=== PATIENT | male | born 1960 | race Caucasian/White ===

== ENCOUNTER → 2019-02-25 08:36 | Outpatient (CLI) | payer OTHER, SELFPAY ==
[2019-02-25 09:42] LABS: Add Manual Diff / Slide Review NO; Basophils Absolute Auto 0 /uL (0-100); Basophils Percent Auto 0.3 % (0-2); Eosinophils Absolute Auto 100 /uL (0-450); Eosinophils Percent Auto 2.6 % (2-4); Hematocrit 45.4 % (41-53); Hemoglobin 15.5 g/dL (13.5-17.5); Lymphocytes Absolute Auto 500 /uL (1100-4500); Mean Corpuscular HGB Conc 34.2 % (30-36); Mean Corpuscular Hemoglobin 32.1 PG (26-34); Mean Corpuscular Volume 93.8 fL (80-100); Monocytes Absolute Auto 400 /uL (0-900); Monocytes Percent Auto 8.5 % (3-14); Neutrophils Absolute Auto 3300 /uL (1500-7000); Neutrophils Percent Auto 76.6 % (50-75); Platelet Count 140 X10^3/uL (150-400); Red Blood Cell Count 4.84 X10^6/uL (4.5-5.9); Red Cell Distribution Width 13.4 % (11.6-14.8); White Blood Cell Count 4.3 X10^3/uL (4.5-11.0)
[2019-02-25 09:49] LABS: Alanine Aminotransferase 27 IU/L (21-72); Albumin 4.4 g/dL (3.5-5.0); Albumin Globulin Ratio 1.8 (1.0-2.8); Alkaline Phosphatase 90 U/L (38-126); Aspartate Aminotransferase 28 IU/L (17-59); BUN Creatinine Ratio 21.1 (6-22); Bilirubin Total 0.6 mg/dL (0.2-1.3); Blood Urea Nitrogen 19 mg/dL (9-20); Calcium 9.1 mg/dL (8.4-10.2); Carbon Dioxide 27 mmol/L (22-32); Chloride 105 mmol/L (98-107); Estimated Glomerular Filt Rate > 60.0 mL/min (>60); Globulin 2.4 g/dL (1.7-4.1); Glucose 114 mg/dL (70-100); HEMOLYSIS < 15 (0-50); Potassium 4.3 mmol/L (3.4-5.1); Sodium 140 mmol/L (137-145); Total Protein 6.8 g/dL (6.3-8.2)
== END ==
PROVIDERS: Visit Provider Dermatology
DX: Z51.81 Encounter for therapeutic drug level monitoring (principal)
CPT/HCPCS: 36415; 80053; 85025

== ENCOUNTER → 2019-03-26 14:12 | Outpatient (CLI) | payer OTHER, SELFPAY ==
[2019-03-29 13:38] LABS: Mitogen-NIL > 10.00 IU/mL; NIL 0.04 IU/mL; QuantiFERON TB NEGATIVE (Negative); TB1-NIL < 0.01 IU/mL; TB2-NIL < 0.01 IU/mL
== END ==
PROVIDERS: Visit Provider Dermatology
DX: Z51.81 Encounter for therapeutic drug level monitoring (principal)
CPT/HCPCS: 36415; 86480

== ENCOUNTER 2019-05-11 07:39 | Day surgery (SDC) | payer OTHER, SELFPAY ==
[2019-05-11] VITALS (7 sets, daily range): BP systolic 128–169; BP diastolic 67–99; PULSE 69–82; RESP 9–79; TEMP 36.6–36.8; O2SAT 15–98; BMI 30.2
[2019-05-11] MEDS: LACTATED RINGERS 1,000 ML 42 ML IV (09:00)
--- NOTE | 2019-05-11 09:23 | PM.HP.1 ---
History of Present Illness History of Present Illness Date Patient Seen: 05/11/19 Time Patient Seen: 09:24 Chief complaint: [id number] SCREENING COLONOSCOPY Narrative: Patient presents for colorectal screening. He had a previous colonoscopy 5 years ago that was notable for a tubular adenomatous polyp that was resected. On further history denies any recent gastrointestinal symptoms. No nausea, vomiting, abdominal pain, loss of appetite, unexplained weight loss, change in bowel habits, diarrhea, constipation, melena, hematochezia, or bright red blood per rectum. No family history of intestinal malignancy Patient History Medical History Autoimmune dermatitis (Acute) Chronic back pain (Acute) History of malaria (Acute) Psoriasis (Acute) Rheumatoid arthritis (Acute) Surgical History H/O carpal tunnel repair (Acute) History of lumbar laminectomy for spinal cord decompression (Acute) History of tonsillectomy (Acute) Family & Social History Social History: household members spouse Meds Home Medications and Allergies Home Medications Medication Instructions Recorded Confirmed Type ascorbic acid (vitamin C) [Vitamin 500 mg PO BID 05/11/19 05/11/19 History C] cetirizine 10 mg PO BID 05/11/19 05/11/19 History clobetasol-emollient 1 applic TOPICAL BID 05/11/19 05/11/19 History co Q10-red yeast rice 300 cap PO DAILY 05/11/19 05/11/19 History docusate sodium 100 mg PO QPM 05/11/19 05/11/19 History folic acid 1 mg PO QPM 05/11/19 05/11/19 History hydrocodone-acetaminophen 1 tab PO BEDTIME 05/11/19 05/11/19 History hydrocortisone 1 applic TOPICAL BID 05/11/19 05/11/19 History methotrexate 17.5 mg PO WEEKLY 05/11/19 05/11/19 History hivlncbirwvt-zofycuum-ijdfeq 1 tab PO DAILY 05/11/19 05/11/19 History [Multivitamin 50 Plus] naproxen 500 mg PO BID 05/11/19 05/11/19 History ranitidine HCl 150 mg PO BID 05/11/19 05/11/19 History tamsulosin 0.4 mg PO BEDTIME 05/11/19 05/11/19 History Allergies Allergy/AdvReac Type Severity Reaction Status Date / Time Sulfa (Sulfonamide AdvReac Intermediate N&V Verified 05/11/19 08:27 Antibiotics) Review of Systems Review of Systems ROS Unobtainable: All systems reviewed & are unremarkable except as noted in HPI and below Exam Vital Signs (past 8 hours): - 05/11/19 08:40 Temperature 98.0 F Pulse Rate 82 Respiratory Rate 15 Blood Pressure 140/88 Pulse Oximetry 98 Oxygen Delivery Method Room Air Narrative Exam Narrative: General-no acute distress, well nourished HEENT-moist mucous membranes, no scleral icterus Neck-supple, no lymphadenopathy Chest- non labored respirations, clear to auscultation bilaterally Cardiac-regular rate no peripheral edema Abdomen-soft, nontender, non distended Extremities-warm, well perfused Neurological-alert and oriented, no focal deficits Assessment & Plan Assessment and plan (1) Screening for colon cancer: Current visit: Yes Status: Acute Assessment & Plan narrative: The patient requires colorectal screening and colonoscopy is recommended. Technical details were discussed. Risks, benefits, alternatives explained. Risks including but not limited to myocardial infarction, aspiration, bleeding, pain, missed lesion, incomplete examination, need for further radiographic studies, colonic perforation, and need for major abdominal surgery were discussed. All questions were answered to their satisfaction, and they are in agreement with this plan.
--- NOTE | 2019-05-11 09:49 | PM.OP.ENDO ---
Operative Date/Time/Diagnoses Date of procedure: 05/11/19 Time of procedure: 09:49 Pre-op diagnosis: History of adenomatous polyp Post-op diagnosis: same Procedure & Clinicians Study performed: Colonoscopy Same procedure as scheduled: Yes Indications: 59-year-old male last colonoscopy 5 years ago demonstrated an adenomatous polyp that was resected presents for screening today. Surgeon: Ramiro Pickard Procedure Notes SCOAP/Timeout: Performed Procedure in detail: Patient placed in left lateral decubitus position. Time out was performed. Procedural sedation was administered with Versed and Fentanyl. A rectal exam demonstrated no external hemorrhoids no internal masses. Colonoscopy scope was placed into the rectum and advanced through the colon to the cecum. The ileocecal valve was identified. The scope was then slowly withdrawn examining colon thoroughly in all directions. The colonoscopy was notable for the following 1. Sigmoid diverticulosis 2. Grade 1-2 internal hemorrhoids Scope withdrawal time: 7 Sedation minutes: 20 Findings: diverticulosis and internal hemorrhoids Impression: Diverticulosis Post-procedure Recommendations: Colonscopy in 10 years and High fiber diet Disposition: same day surgery
[2019-05-11] MEDS: MIDAZOLAM 5 MG/5 ML VIAL IV (09:51)
[2019-05-11] MEDS: fentaNYL 250 MCG/5 ML INJ IV (09:52)
--- NOTE | 2019-05-11 10:06 | SUR.PHASEI ---
HOB elevated, resp unlabored, skin warm and dry, tolerating PO well. Talking, oriented.
== END 2019-05-11 10:35 | disposition home or self-care (01) ==
PROVIDERS: Visit Provider Surgery
PROC: 0DJD8ZZ Inspection of Lower Intestinal Tract, Via Natural or Artificial Opening Endoscopic (ICD-10-PCS; CPT 45378; principal; 2019-05-11 10:00)
DX: Z86.010 Personal history of colon polyps (principal); K57.30 Diverticulosis of large intestine without perforation or abscess without bleeding; K64.0 First degree hemorrhoids
CPT/HCPCS: 45378; 99152; J2250; J3010

== ENCOUNTER → 2019-06-30 08:48 | Outpatient (CLI) | payer OTHER, SELFPAY ==
[2019-06-30 10:43] LABS: Add Manual Diff / Slide Review NO; Basophils Absolute Auto 0 /uL (0-100); Basophils Percent Auto 0.4 % (0-2); Eosinophils Absolute Auto 100 /uL (0-450); Eosinophils Percent Auto 2.2 % (2-4); Hematocrit 44.7 % (41-53); Hemoglobin 15.6 g/dL (13.5-17.5); Lymphocytes Absolute Auto 500 /uL (1100-4500); Lymphocytes Percent Auto 12.2 % (25-40); Mean Corpuscular HGB Conc 34.8 % (30-36); Mean Corpuscular Hemoglobin 32.6 PG (26-34); Mean Corpuscular Volume 93.8 fL (80-100); Monocytes Absolute Auto 400 /uL (0-900); Monocytes Percent Auto 9.6 % (3-14); Neutrophils Absolute Auto 3100 /uL (1500-7000); Neutrophils Percent Auto 75.6 % (50-75); Platelet Count 152 X10^3/uL (150-400); Red Blood Cell Count 4.77 X10^6/uL (4.5-5.9); Red Cell Distribution Width 13.4 % (11.6-14.8); White Blood Cell Count 4.1 X10^3/uL (4.5-11.0)
[2019-06-30 10:52] LABS: Alanine Aminotransferase 31 IU/L (<50); Albumin 4.4 g/dL (3.5-5.0); Albumin Globulin Ratio 2.1 (1.0-2.8); Alkaline Phosphatase 92 U/L (38-126); Aspartate Aminotransferase 35 IU/L (17-59); Bilirubin Total 0.7 mg/dL (0.2-1.3); Blood Urea Nitrogen 23 mg/dL (9-20); Calcium 9.2 mg/dL (8.4-10.2); Carbon Dioxide 27 mmol/L (22-32); Chloride 107 mmol/L (98-107); Estimated Glomerular Filt Rate > 60.0 mL/min (>60); Globulin 2.1 g/dL (1.7-4.1); Glucose 98 mg/dL (70-100); HEMOLYSIS 17 (0-50); Potassium 3.9 mmol/L (3.4-5.1); Sodium 142 mmol/L (137-145); Total Protein 6.5 g/dL (6.3-8.2)
== END ==
PROVIDERS: Visit Provider Dermatology
DX: Z51.81 Encounter for therapeutic drug level monitoring (principal); L40.9 Psoriasis, unspecified
CPT/HCPCS: 36415; 80053; 85025